=== PATIENT | male | born 1970 | race Asian ===

== ENCOUNTER → 2016-07-05 | Outpatient (CLI) | payer BC ==
[~2016-07-05] MED LIST: ACIDOPHILUS PO; ANDROGEL1.62% TOP; CALCIUM CITRATE1 TA5 PO; CATAFLAM50 MG PO; CELEXA 20MG20 MG/TAB PO; CLARITIN; CORGARD40 MG PO; ESZOPICOLONE; GARLIC OIL 101000 MG PO; GLUCOSAMINE & C1 CA1 PO; IRON SUPPLEMENT; MULTIPLE VITAMI1 TAB PO; NASONEX SPRAY17 GM NS; NEURONTIN300 MG/CAP PO; NUVIGIL250 MG PO; PRAVACHOL 40MG40 MG PO; PREVASTATIN; PRILOSEC10 MG PO; PROVIGIL; SINGULAIR; TESTOSTERONE25 MG/ML IM; XYREM500 MG/ML PO; ZYRTEC 10MG10 MG PO; ZYRTEC5 MG PO
== END ==
LOC: BHSO 14:51
DX: F41.1 Generalized anxiety disorder (principal)

== ENCOUNTER → 2016-10-09 | Outpatient (CLI) | payer BC | LOC: BHSO 14:13 | DX: F41.1 Generalized anxiety disorder (principal) ==

== ENCOUNTER → 2017-01-08 | Outpatient (CLI) | payer BC | LOC: BHSO 14:50 | DX: F41.1 Generalized anxiety disorder (principal) ==

== ENCOUNTER → 2017-06-01 | Outpatient (CLI) | payer BC | LOC: BHSO 14:24 | DX: F41.1 Generalized anxiety disorder (principal) ==